=== PATIENT | female | born 1980 | race Caucasian/White ===

== ENCOUNTER → 2018-01-05 | Outpatient (CLI) | payer MEDICAID | LOC: CIMAGING 11:45 | PROVIDERS: ATTEND Family Medicine | DX: M25.511 Pain in right shoulder (principal) | CPT/HCPCS: 71130-PO ==

== ENCOUNTER 2018-02-01 09:17 | Emergency (ER) | payer MEDICAID ==
[2018-02-01 09:32] VITALS: BP 132/76
--- NOTE | 2018-02-01 09:32 | EDPHY ---
H & P Time Seen by Provider: 02/01/18 09:22 HPI/ROS: Chief Complaint: Sinus congestion, earache HPI: 37-year-old woman with history of diabetes is presenting with 1 week of sinus congestion and worsening left ear pain for the last several days. She has been taking decongestants [id number] medications without relief. She is prone to sinus infections in the past. She has had some subjective fevers and chills at home. Mild headache which is worse when she malcom forward. No nausea or vomiting. Mild cough productive of greenish sputum occasionally. Mild sore throat. No abdominal pain. No skin rash. ROS: 10 point Review of Systems is negative except as noted in the HPI. Social History: No smoking, no alcohol, no recreational drug use Family History: non-contributory Physical Exam: Gen: Awake, Alert, No Distress HEENT: Right ear is normal, left TM is erythematous and bulging Face: Patient has sinus tenderness to percussion over her left frontal and left maxillary sinus Nose: Purulent rhinorrhea Eyes: PERRLA, EOMI Mouth: Moist mucosa mild oral pharyngeal erythema with purulent postnasal drip, no edema or exudate Neck: Supple, no JVD Chest: nontender, lungs clear to auscultation Heart: S1, S2 normal, no murmur Abd: Soft, non-tender, no guarding Back: no CVA tenderness, no midline tenderness Ext: no edema, non-tender Skin: no rash Neuro: CN II-XII intact, Sensation grossly intact, Strength 5/5 in bilateral upper and lower extremities - Personal History Tetanus Vaccine Date: <10 years - Medical/Surgical History Hx Asthma: No Hx Chronic Respiratory Disease: No Hx Diabetes: Yes Hx Cardiac Disease: No Hx Renal Disease: No Hx Cirrhosis: No Hx Alcoholism: No Hx HIV/AIDS: No Hx Splenectomy or Spleen Trauma: No Other PMH: HTN, acid reflux, social anxiety disorder, R ankle sgy - Social History Smoking Status: Never smoked Constitutional: Initial Vital Signs Temperature (C) 36.7 C 02/01/18 09:28 Heart Rate 88 02/01/18 09:28 Respiratory Rate 16 02/01/18 09:28 Blood Pressure 132/76 H 02/01/18 09:28 O2 Sat (%) 94 02/01/18 09:28 O2 Delivery Mode Room Air Allergies/Adverse Reactions: sertraline HCl [From Zoloft] Allergy (Severe, Verified 02/01/18 09:22) HALLUCINATIONS zolmitriptan [From Zomig] Allergy (Severe, Verified 02/01/18 09:22) Anaphylaxis Sulfa (Sulfonamide Antibiotics) Allergy (Intermediate, Verified 02/01/18 09:22) Vomiting sumatriptan [From Imitrex] Allergy (Verified 02/01/18 09:22) sumatriptan succinate [From Imitrex] Allergy (Verified 02/01/18 09:22) zofran Allergy (Uncoded 02/01/18 09:22) Home Medications: Medication Instructions Recorded Metoprolol Tartrate 50 mg 10/16/10 OMEPRAZOLE 20 mg 10/16/10 Paroxetine HCl 40 mg 10/16/10 Trazodone HCl 100 mg PRN 10/16/10 Naproxen Sodium [Naprosyn 550 mg 550 mg PO BIDMEAL 05/15/12 (RX)] Bupropion HCl [Budeprion Xl] 300 mg PO 02/19/13 glyBURIDE [Glyburide] 5 mg PO DAILY 03/31/13 Losartan Potassium [Cozaar] 25 mg PO 05/05/14 Amoxicillin Trihydrate [Amoxil] 500 mg PO Q8H #30 cap 02/01/18 Atorvastatin Calcium 02/01/18 Atrovent Hfa (*) 02/01/18 Gabapentin 02/01/18 Metformin 1000 mg 02/01/18 Medical Decision Making ED Course/Re-evaluation: 37-year-old woman with acute otitis media and symptoms consistent with sinusitis. Will start her on amoxicillin. She will follow up with primary care physician early next week for re-evaluation. [id number] analgesia as needed. Departure - Departure Disposition: Home, Routine, Self-Care Clinical Impression: Acute otitis media, Acute sinusitis Condition: Good Instructions: Sinusitis (ED), Ear Infection (ED), Warm Compress or Soak (ED) Additional Instructions: Alternate acetaminophen (1000 mg) with ibuprofen (400 mg) every 4 hours as needed for fevers, chills, aches or pain. Please take your full course of antibiotics. Follow up with her primary care physician in 3-4 days. Referrals: PAULINE STOCK [Primary Care Provider] - As per Instructions Prescriptions: Amoxicillin Trihydrate [Amoxil] 500 mg PO Q8H #30 cap
== END 2018-02-01 09:41 | disposition home or self-care (01) ==
LOC: CED 09:17
DX: H66.92 Otitis media, unspecified, left ear (principal); J01.90 Acute sinusitis, unspecified; I10 Essential (primary) hypertension; Z79.84 Long term (current) use of oral hypoglycemic drugs